=== PATIENT | female | born 1990 | race Caucasian/White ===

== ENCOUNTER 2019-03-17 21:46 | Emergency (ER) | payer OTHER ==
[~2019-03-17] VITALS: Ht 162.6 cm; Wt 49.6 kg
[2019-03-17 21:55] VITALS: BP 148/77
--- NOTE | 2019-03-17 22:04 | NUR ---
AMBULATES TO LOBBY WITH STEADY UPRIGHT GAIT. URINE CUP PROVIDED. AWAITING AVAILABLE BED.
--- NOTE | 2019-03-18 | NUR ---
TAKEN TO BED 05 WITH STEADY GAIT. ACCOMPANYING.
--- NOTE | 2019-03-18 00:28 | NUR ---
28 YEAR OLD FEMALE COMPLAINS OF VAGINAL BLEDING X 1 DAY. 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 PATIENT STATES THAT SHE HAS HAD 4 PADS SHE SWITCHED TODAY THAT WERE SATURATED IN BLOOD. PATIENT DENIES DIZZINESS, NAUSEA, AND VOMITTING. PATIENT ALERT AND ORIENTED, BREATHING EVEN AND UNLABORED, SKIN WARM AND DRY. BED IN LOWEST POSITION, LOCKED, BED RAIL UPX1. AT BEDSIDE PMH - DENIES MEDS - ESTRADIOL, PROGESTERONE ALLERGIES - NKA
[2019-03-18 00:38] LABS: BASOPHILS % (AUTO) 0.6 % (0.0-2.0); EOSINOPHILS # (AUTO) 0.1 K/uL (0-0.4); EOSINOPHILS % (AUTO) 1.7 % (0.0-4.0); HEMATOCRIT 41.4 % (36-48); HEMOGLOBIN 13.8 g/dL (12.0-16.0); LYMPHOCYTES % (AUTO) 12.5 % (20.5-51.1); MEAN CORPUSCULAR HEMOGLOBIN 29 pg (27-31); MEAN CORPUSCULAR HGB CONC 33 g/dL (33-37); MEAN CORPUSCULAR VOLUME 87.6 fL (80-94); MONOCYTES # (AUTO) 0.5 K/uL (0.8-1.0); MONOCYTES % (AUTO) 6.1 % (1.7-9.3); NEUTROPHILS # (AUTO) 6.3 K/uL (1.8-7.7); NEUTROPHILS % (AUTO) 79.1 % (42.2-75.2); PLATELET COUNT (AUTO) 240 K/uL (140-450); RED BLOOD CELL COUNT(AUTO) 4.72 MIL/uL (4.20-5.40); RED CELL DISTRIBUTION WIDTH 13.5 % (11.6-13.7); WHITE BLOOD COUNT (AUTO) 7.9 K/uL (4.8-10.8)
[2019-03-18 00:55] VITALS: BP 148/77
--- NOTE | 2019-03-18 00:55 | NUR ---
DISCHARGE DONE BY DR SORENSEN. Patient discharged with v/s stable. Written and verbal after care instructions ABOUT VAGINAL BLEEDING DURING (FIRST TRIMESTER) given and explained. Patient verbalized understanding. Ambulatory with steady gait. All questions addressed prior to discharge. Advised to follow up with PMD.
[2019-03-18 00:56] LABS: ALBUMIN 3.4 g/dL (3.4-5.0); ANION GAP 15.6 (8-16); CARBON DIOXIDE 23.3 mmol/L (21-32); CREATININE 0.7 mg/dL (0.6-1.3); POTASSIUM 3.9 mmol/L (3.5-5.1); TOTAL BILIRUBIN 0.2 mg/dL (0.0-1.0)
== END 2019-03-18 00:55 | disposition home or self-care (01) ==
LOC: MED 21:46
DX: O26.851 Spotting complicating pregnancy, first trimester (principal); Z3A.01 Less than 8 weeks gestation of pregnancy
CPT/HCPCS: 36415; 76801; 80053; 84702; 85025; 86900; 86901; 99284